=== PATIENT | female | born 1990 | race Two or more races ===

== ENCOUNTER 2025-08-29 06:38 | Inpatient (IN) | payer BC, MEDICAID ==
[2025-08-29] MEDS ORDERED: hydrALAZINE 20 MG/ML VIAL SLOW IVP PRN ×2 (07:04→08:19)
[2025-08-29 07:58] VITALS: BMI 33.6
[2025-08-29] MEDS ORDERED: Carboprost 250 MCG/ML AMP IM PRN (08:19)
[2025-08-29] MEDS ORDERED: Methylergonovine 0.2 MG/ML VIAL IM PRN (08:19)
[2025-08-29] MEDS ORDERED: Lidocaine 1% (PF) 30 ML VIAL SC PRN (08:19)
[2025-08-29] MEDS ORDERED: Tranexamic Acid 1,000 MG/10 ML VIAL IVP PRN (08:19)
[2025-08-29] MEDS ORDERED: Ondansetron PF 4 MG/2 ML Vial IVP PRN ×2 (08:19→10:17)
[2025-08-29 08:30] LABS: Hematocrit 40.7 % (34.9-44.5); Hemoglobin 13.8 g/dL (12.0-15.5); Mean Corpuscular Hemoglobin 29.8 pg (27.0-33.0); Mean Corpuscular Volume 87.9 fL (81.6-98.3); Platelet Count 275 10x3/uL (150-450); Red Blood Cell (RBC) Count 4.63 10x6/uL (3.90-5.03); White Blood Cell (WBC) Count 17.17 10x3/uL (3.5-10.5)
[2025-08-29] MEDS ORDERED: Oxytocin 30 units/NS 500 ML 500 ML IV SCH (08:30)
[2025-08-29 09:00] LABS: Syphilis Antibody Index 0.05 S/CO (<1.00 Non-Reactive)
[2025-08-29 09:01] LABS: Hep B Surf Ag - L&D Non-Reactive S/CO (NonReactive)
[2025-08-29] MEDS ORDERED: diphenhydrAMINE 50 MG/ML VIAL IVP PRN (10:17)
[2025-08-29] MEDS ORDERED: Acetaminophen 325 MG TAB PO PRN (10:17)
[2025-08-29] MEDS ORDERED: Communication Order-Pharmacy FS SCH (10:30)
[2025-08-29] MEDS: fentaNYL 2 mcg/Ropivacaine 0.2% Epidural 100 ML CADD EPIDURAL SCH (14:43)
[2025-08-29] MEDS: Oxytocin 30 units/NS 500 ML 500 ML IV SCH (14:44)
[2025-08-30] MEDS: Acetaminophen 500 MG TAB PO PRN (00:34)
[2025-08-30] MEDS ORDERED: Famotidine/PF 20 mg/2ml Vial SLOW IVP PRN (00:49)
[2025-08-30] MEDS ORDERED: Bicitra 30 ML UDCUP PO PRN (00:49)
[2025-08-30] MEDS ORDERED: Lanolin Ointment 7 GM TUBE TOP PRN ×2 (01:12→05:29)
[2025-08-30] MEDS ORDERED: Bisacodyl 10 MG SUPP PR PRN ×2 (01:12→05:29)
[2025-08-30] MEDS ORDERED: HYDROcodone/Acetaminophen 5/325 mg Tablet PO PRN (01:12)
[2025-08-30] MEDS ORDERED: Meperidine HCl/PF 25 MG (1 mL) VIAL SLOW IVP PRN (01:47)
[2025-08-30] MEDS ORDERED: Ondansetron PF 4 MG/2 ML Vial IVP PRN ×3 (01:47→02:42)
[2025-08-30] MEDS ORDERED: diphenhydrAMINE 50 MG/ML VIAL IVP PRN ×2 (01:51→02:42)
[2025-08-30] MEDS ORDERED: Communication Order-Pharmacy FS SCH ×2 (02:00→02:45)
[2025-08-30] MEDS: Diphenoxylate HCl/Atropine Tablet PO PRN (02:16)
[2025-08-30] MEDS ORDERED: diphenhydrAMINE 25 MG CAP PO PRN ×2 (02:42→05:29)
[2025-08-30] MEDS ORDERED: diphenhydrAMINE 50 MG/ML VIAL IM PRN (02:42)
[2025-08-30] MEDS: fentaNYL Citrate/PF 55 ML IV SCH (04:03)
[2025-08-30] MEDS ORDERED: Benzocaine-Menthol 82.5 ML CAN TOP PRN (05:29)
[2025-08-30] MEDS ORDERED: Preparation H Ointment 28 GM TUBE PR PRN (05:29)
[2025-08-30] MEDS ORDERED: Ibuprofen 800 MG TAB PO SCH (06:00)
[2025-08-30] MEDS: fentaNYL/Ropivacaine Epidural 100 ML ONE (07:37)
[2025-08-30] MEDS: Oxytocin 10 UNITS/ML VIAL ONE ×2 (07:38→07:39)
[2025-08-30] MEDS: PHENYLEPHRINE-NS 100 MCG/ML 10 ML SYRINGE ONE (07:38)
[2025-08-30] MEDS: Dexamethasone 10 MG/ML VIAL ONE (07:38)
[2025-08-30] MEDS: Tranexamic Acid 1,000 MG/10 ML VIAL ONE (07:39)
[2025-08-30] MEDS: Albuterol HFA (OR) 200 PUFF INH ONE (07:40)
[2025-08-30] MEDS: PROPOFOL 20 ML ONE (07:40)
[2025-08-30] MEDS: Ferrous Sulfate 325 MG TAB PO SCH (07:41)
[2025-08-30] MEDS: Acetaminophen 325 MG TAB PO SCH ×2 (07:54→20:06)
[2025-08-30] MEDS ORDERED: Ferrous Sulfate 325 MG TAB PO SCH (09:00)
[2025-08-30 16:23] LABS: Hematocrit 30.9 % (34.9-44.5); Hemoglobin 10.4 g/dL (12.0-15.5)
[2025-08-30] MEDS: HYDROcodone/Acetaminophen 5/325 mg Tablet PO PRN (20:05)
[2025-08-31] MEDS: HYDROcodone/Acetaminophen 5/325 mg Tablet PO PRN (09:18)
[2025-08-31] MEDS: Simethicone Chewable 80 MG TAB PO PRN (13:49)
[2025-08-31] MEDS: Milk Of Magnesia 30 ML UDCUP PO PRN (20:54)
[2025-09-01 00:25] VITALS: TEMP 97.9
[2025-09-01 08:19] VITALS: BP 110/56
[2025-09-01] MEDS: Senokot S 8.6-50 MG TAB PO SCH (10:05)
== END 2025-09-01 16:30 | disposition home or self-care (01) | DRG 788 ==
LOC: CSHLD/OP 06:38 → CSHLD 07:20 → CSHPED 08-30 05:05
PROVIDERS: ADMIT Family Medicine; ATTEND Family Medicine
PROC: 10907ZC Drainage of Amniotic Fluid, Therapeutic from Products of Conception, Via Natural or Artificial Opening (ICD-10-PCS; 2025-08-29)
PROC: 10H07YZ Insertion of Other Device into Products of Conception, Via Natural or Artificial Opening (ICD-10-PCS; 2025-08-29)
PROC: 4A1HXCZ Monitoring of Products of Conception, Cardiac Rate, External Approach (ICD-10-PCS; 2025-08-29)
PROC: 3E033VJ Introduction of Other Hormone into Peripheral Vein, Percutaneous Approach (ICD-10-PCS; 2025-08-29)
PROC: 3E03329 Introduction of Other Anti-infective into Peripheral Vein, Percutaneous Approach (ICD-10-PCS; 2025-08-30)
PROC: 10D00Z1 Extraction of Products of Conception, Low, Open Approach (ICD-10-PCS; principal; 2025-08-31)
DX: O99.52 Diseases of the respiratory system complicating childbirth (principal); J45.909 Unspecified asthma, uncomplicated; O99.214 Obesity complicating childbirth; O32.4XX0 Maternal care for high head at term, not applicable or unspecified; O34.13 Maternal care for benign tumor of corpus uteri, third trimester; D25.9 Leiomyoma of uterus, unspecified; O62.2 Other uterine inertia; Z37.0 Single live birth; Z3A.38 38 weeks gestation of pregnancy; Z88.1 Allergy status to other antibiotic agents; Z88.8 Allergy status to other drugs, medicaments and biological substances
CPT/HCPCS: 36415; 51702; 85014; 85018; 85027; 86780; 86850; 86900; 86901; 87340; 99285; J0290; J1100; J2250; J2274; J2590; J2704; J3010